=== PATIENT | female | born 1990 | race Hispanic/Latino ===

== ENCOUNTER 2017-08-01 10:02 | Outpatient (CLI) | payer OTHER ==
[2017-08-01 10:32] LABS: Calcium 8.5 mg/dL (8.4-10.2)
== END 2017-08-01 10:03 | disposition home or self-care (01) ==
LOC: LAB 10:02
PROVIDERS: ATTEND Internal Medicine
DX: E07.9 Disorder of thyroid, unspecified (principal); M32.9 Systemic lupus erythematosus, unspecified
CPT/HCPCS: 36415; 82310; 82565